=== PATIENT | male | born 1995 | race Hispanic/Latino ===

== ENCOUNTER 2017-11-02 19:47 | Emergency (ER) | payer OTHER ==
--- NOTE | 2017-11-02 20:31 | C.PDOC ---
History Of Present Illness 22 year old male presents to the ER with a complaint of a sudden onset of chest pain while laying in bed at approximately 18:00 that worsens with specific movements and deep inspiration. Patient reports he is a smoker but denies recent chest trauma, heavy lifting, Hx of asthma, Hx of cardiac disease, fever, sore throat, or post nasal drip. Chief Complaint (Nursing): Chest Pain History Per: Patient History/Exam Limitations: no limitations Onset/Duration Of Symptoms: Hrs Current Symptoms Are (Timing): Still Present Quality: Sharp Associated Symptoms: denies: Nausea, Dyspnea, Diaphoresis, Syncope Modifying Factors: None Exacerbating Factors: Movement (Specific), Deep Breathing Alleviating Factors: None Recent travel outside of the [place]: No Past Medical History Reviewed: Historical Data, Nursing Documentation, Vital Signs Vital Signs: Last Vital Signs Temp 98.5 F 11/02/17 21:40 Pulse 60 11/02/17 21:40 Resp 18 11/02/17 21:40 BP 92/64 L 11/02/17 21:40 Pulse Ox 96 11/02/17 21:40 - Medical History PMH: No Chronic Diseases Surgical History: No Surg Hx Family History: States: Unknown Family Hx - Social History Hx Tobacco Use: Yes Hx Alcohol Use: Yes Hx Substance Use: Yes - Immunization History Hx Tetanus Toxoid Vaccination: No Hx Influenza Vaccination: No Hx Pneumococcal Vaccination: No Review Of Systems Constitutional: Negative for: Fever, Chills ENT: Negative for: Nose Discharge, Throat Pain Respiratory: Negative for: Cough, Shortness of Breath Musculoskeletal: Positive for: Other (Chest wall pain) Physical Exam - Physical Exam Appears: Non-toxic, No Acute Distress Skin: Normal Color, Warm, Dry Head: Atraumatic, Normacephalic Eye(s): bilateral: Normal Inspection, PERRL, EOMI Oral Mucosa: Moist Neck: Normal, Supple Chest: Symmetrical, Tenderness (Reproducible to left wall with palpation and movement of left upper extremity) Cardiovascular: Rhythm Regular, No JVD Respiratory: Normal Breath Sounds, No Rales, No Rhonchi, No Wheezing Gastrointestinal/Abdominal: Soft, No Tenderness Extremity: Normal ROM (x4) Neurological/Psych: Oriented x3, Normal Speech, Other (No focal deficits) ED Course And Treatment - Laboratory Results Result Diagrams: 11/02/17 21:00 11/02/17 21:00 ECG: Interpreted By Me, Viewed By Me ECG Rhythm: Sinus Rhythm ECG Interpretation: Normal Interpretation Of ECG: No acute ST/T wave changes, no ectope, no evidence of ischemia Rate From EC O2 Sat by Pulse Oximetry: 100 (Room air) Pulse Ox Interpretation: Normal Medical Decision Making Medical Decision Making: Will order labs and treat with analgesics. Disposition - Disposition Referrals: at [facility] [Outside] Disposition: HOME/ ROUTINE Disposition Time: 22:00 Condition: GOOD Additional Instructions: take motrin as needed for pain Forms: [employer] (Croatian) - Clinical Impression Clinical Impression: Chest wall pain - Scribe Statement The provider has reviewed the documentation as recorded by the Scribe Riley Lopez All medical record entries made by the Scribe were at my direction and personally dictated by me. I have reviewed the chart and agree that the record accurately reflects my personal performance of the history, physical exam, medical decision making, and the department course for this patient. I have also personally directed, reviewed, and agree with the discharge instructions and disposition.
[2017-11-02 21:02] LABS: BASO % 0.1 % (0.0-2.0); EOS % 0.1 % (0.0-4.0); HEMATOCRIT 48.2 % (35.0-51.0); LYMPH # 0.4 K/uL (1.0-4.3); LYMPH % 5.2 % (20.0-40.0); MEAN CELL VOLUME 87.5 fL (80.0-94.0); MEAN CORPUSCULAR HEMOGLOBIN 30.2 pg (27.0-31.0); MEAN CORPUSCULAR HGB CONC 34.5 g/dL (33.0-37.0); MEAN PLATELET VOLUME 8.4 fL (7.2-11.7); MONO # 0.5 K/uL (0.0-0.8); MONO % 5.9 % (0.0-10.0); PLATELET COUNT 196 K/uL (130-400); WHITE BLOOD COUNT 8.3 K/uL (4.8-10.8)
[2017-11-02 21:19] LABS: ALB/GLOB RATIO 1.5 (1.0-2.1); ALKALINE PHOSPHATASE 66 U/L (38-126); ALT/SGPT 56 U/L (21-72); AST/SGOT 57 U/L (17-59); BLOOD UREA NITROGEN 12 mg/dL (9-20); CALCIUM 9.4 mg/dl (8.6-10.4); CARBON DIOXIDE 25 mmol/L (22-30); CHLORIDE 99 mmol/L (98-107); GFR AFRICAN-AMERICAN > 60; GLUCOSE,RANDOM 113 mg/dL (75-110); POTASSIUM 3.9 mmol/L (3.6-5.2); SODIUM 135 mmol/L (132-148); TOTAL PROTEIN 8.1 g/dL (6.3-8.3)
[2017-11-02 21:41] VITALS: BP 92/64; PULSE 60; RESP 18; TEMP 98.5
[2017-11-02 21:46] LABS: NEUTROPHIL 93 % (50-75); TOTAL CELLS COUNTED 100
[2017-11-02 22:02] VITALS: O2SAT 100
--- NOTE | 2017-11-04 23:22 | CARD ---
APPROVED REPORT EKG Measurement Heart [id number] <Conclusion> Normal sinus rhythm Normal ECG
== END 2017-11-02 22:08 | disposition home or self-care (01) ==
LOC: C.ER 19:47
DX: R07.89 Other chest pain (principal)
CPT/HCPCS: 80053; 84484; 85025; 93005; 96374; 99284; J1885